=== PATIENT | male | born 1995 | race African-American/Black ===

== ENCOUNTER 2020-10-31 13:50 | Emergency (ER) | payer MEDICAID, OTHER ==
[~2020-10-31] VITALS: Ht 167.6 cm; Wt 75.0 kg
[2020-10-31] MEDS ORDERED: DOXY100C2 MT (17:23)
[2020-10-31] MEDS ORDERED: CEPH500T MT (17:23)
[2020-10-31] MEDS ORDERED: MUPI15CR11 TP (17:23)
[2020-10-31] MEDS ORDERED: BACITRACIN ZINC OINT UDPKT TOP ONE (17:30)
[2020-10-31 17:34] VITALS: BP 120/78
== END 2020-10-31 17:34 | disposition home or self-care (01) ==
LOC: ER 13:50
DX: L03.115 Cellulitis of right lower limb (principal)
CPT/HCPCS: 99282